=== PATIENT | male | born 1965 | race African-American/Black ===

== ENCOUNTER → 2025-07-18 | Day surgery (SDC) | payer MEDICARE, MEDICAID ==
[~2025-07-18] VITALS: Ht 175.3 cm; Wt 94.3 kg
[~2025-07-18] MED LIST: ACETAMINOPHEN 1,000MG/100ML PREMIX IV PRN; ATOR10TA69 PO; BUPIVACAINE HCL/PF 0.5% (5MG/ML) 10ML ONE; CARV25TA47 PO; EMPA25TA PO; FAMO20TA8 PO; FAMOTIDINE 20MG/2ML VIAL IV PRN; FENTANYL CITRATE/PF 50MCG/ML 2ML VIAL ONE; HYDRALAZINE 20MG/ML VIAL IV PRN; HYDROMORPHONE HCL/PF 2MG/ML INJ IV PRN; INSU100C6 SQ; LABETALOL 5MG/ML 4ML INJ IV PRN; LIDOCAINE HCL 1% 10 MG/ML 10ML VIAL ONE; LOSA25TA26 PO; MEPERIDINE HCL/PF 25MG/ML CPJ IV PRN; MIDAZOLAM HCL 2 MG/2 ML VIAL ONE; MULT-1203 PO; NIFE-49 PO; ONDANSETRON HCL 4MG/2ML INJ IV PRN; POLYMYXIN B SULFATE 500000 UNITS/VIAL ONE; PROPOFOL 200MG/20ML VIAL IV ONE; SKIN ADHESIVE 0.7 GM EA TOP ONE; SODI650T PO; TACR1CAP PO
[2025-07-18] MEDS: SODIUM CHLORIDE 0.9% 1,000 ML IV SCH (07:39)
== END | disposition home or self-care (01) ==
LOC: OR 05:13
PROVIDERS: ATTEND Specialist
DX: L82.1 Other seborrheic keratosis (principal); D22.5 Melanocytic nevi of trunk; I12.9 Hypertensive chronic kidney disease with stage 1 through stage 4 chronic kidney disease, or unspecified chronic kidney disease; N18.30 Chronic kidney disease, stage 3 unspecified; B35.1 Tinea unguium; E78.5 Hyperlipidemia, unspecified; Z79.4 Long term (current) use of insulin; Z79.621 Long term (current) use of calcineurin inhibitor; Z94.0 Kidney transplant status; Z79.899 Other long term (current) drug therapy; Z79.84 Long term (current) use of oral hypoglycemic drugs; Z98.890 Other specified postprocedural states
CPT/HCPCS: 11401; 12032; 82962; 88305; J3010; J0665; J2003; J2250; J3490; J2704